=== PATIENT | female | born 1995 ===

== ENCOUNTER 2025-02-05 01:38 | Emergency (ER) | payer MEDICAID, OTHER ==
[~2025-02-05] VITALS: Ht 154.9 cm; Wt 65.9 kg
--- NOTE | 2025-02-05 02:35 | ED.PDOC ---
GI ASSESSMENT HPI Comments 29-year-old female with no reported PMHx presents with a chief complaint of abdominal pain x 1900 onset with associated nausea and vomiting. Patient mentions that her pain is localized to her epigastric region, nonradiating, describes as cramping sensation, and rates her pain a 6/10. Patient mentions that she may have eaten spoiled food. Patient mentions that she ate chicken salad. Patient denies any current diarrhea, or any blood in her emesis. No other symptoms or modifying factors present at this time. Chief Complaint: Abdominal Pain Time Seen by MD: 02:15 Reviewed Notes: Medications, Allergies Allergies: Coded Allergies: NO KNOWN ALLERGIES (Unverified , 02/05/25) Information Source: Patient Mode of Arrival: Ambulatory Timing: Hours Duration: Since onset Prehospital treatment: None Quality: Cramping Vomitus: Food Particles Stool: Normal Severity: Moderate Recent: Possible spoiled food Recent Hx of: None Pain Location: Epigastric Associated sign and symptoms: Nausea, Vomiting, Abdominal Pain Vital Signs Vital Signs Date Time Temp Pulse Resp B/P (MAP) Pulse Ox O2 Delivery O2 Flow Rate FiO2 02/05/25 01:50 99.4 94 16 118/86 (97) 97 99.4 Physical Exam General: Awake, alert and oriented. No acute distress. Skin: Skin in warm, dry and intact. Appropriate color for ethnicity. HEENT: The head is normocephalic and atraumatic. Conjunctivae are clear without exudates or hemorrhage. Sclera is non-icteric. EOM are intact. No signs of nystagmus. Eyelids are normal in appearance without swelling or lesions. Oral mucosa is pink and moist Neck: The neck is supple with normal range of motion. No JVD. Cardiac: Heart rate and rhythm are normal. No murmurs, gallops, or rubs are auscultated. Respiratory: No signs of respiratory distress. Lung sounds are clear in all lobes bilaterally without rales, ronchi, or wheezes. Abdominal: Abdomen is soft, non-tender without distention. Bowel sounds are present and normoactive in all four quadrants. Extremities: Upper and lower extremities are atraumatic in appearance without deformity or edema. Neurological: The patient is awake, alert and oriented to person, place, and time with normal speech. Speech is clear. There is no facial asymmetry. Psychiatric: Appropriate mood and affect. Good judgement and insight. Review of Systems: REVIEW OF SYSTEMS: No fever, no chills, or fatigue HEENT: No sore throat, no earache, no congestion, no neck pain. Cardiac: No chest pain. No palpitations. Lungs: No shortness of breath, no cough. GI: No nausea, no vomiting, no diarrhea, no constipation, no abdominal pain : No dysuria, frequency, or urgency. No hematuria. Musculoskeletal: No joint pain , no joint swelling, no extremity edema. Skin: No rash, no itching. 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 Was a procedure done?: No X-Ray, Labs, Meds, VS Vital Signs Date Time Temp Pulse Resp B/P (MAP) Pulse Ox O2 Delivery O2 Flow Rate FiO2 02/05/25 01:50 99.4 94 16 118/86 (97) 97 99.4 Lab Test 02/05/25 02:36 02/05/25 02:00 Range/Units White Blood Count 11.2 H 4.4-10.8 10^3/uL Red Blood Count 4.42 4.0-5.20 10^6/uL Hemoglobin 13.7 12.2-16.2 g/dL Hematocrit 39.9 36.0-46.0 % Mean Corpuscular Volume 90.4 80.0-100.0 fL Mean Corpuscular Hemoglobin 31.1 28.0-32.0 pg Mean Corpuscular Hemoglobin Concent 34.4 32.0-36.0 g/dL Red Cell Distribution Width 14.0 11.8-14.3 % Platelet Count 218 140-450 10^3/uL Mean Platelet Volume 9.5 6.9-10.8 fL Neutrophils (%) (Auto) 87.0 H 37.0-80.0 % Lymphocytes (%) (Auto) 7.5 L 10.0-50.0 % Monocytes (%) (Auto) 4.6 0.0-12.0 % Eosinophils (%) (Auto) 0.7 0.0-7.0 % Basophils (%) (Auto) 0.2 0.0-2.0 % Neutrophils # (Auto) 9.7 H 1.6-8.6 10 ^3/uL Lymphocytes # (Auto) 0.8 0.4-5.4 10 ^3/uL Monocytes # (Auto) 0.5 0-1.3 10 ^3/uL Eosinophils # (Auto) 0.1 0-0.8 10 ^3/uL Basophils # (Auto) 0 0-0.2 10 ^3/uL Nucleated Red Blood Cells 0.0 % Sodium Level 140 136-145 mmol/L Potassium Level 3.5 3.5-5.1 mmol/L Chloride Level 107 98-107 mmol/L Carbon Dioxide Level 24 20-31 mmol/L Anion Gap 9 5-15 Blood Urea Nitrogen 10 9-23 mg/dL Creatinine 0.84 0.550-1.02 mg/dL Glomerular Filtration Rate Calc 98 >90 mL/min BUN/Creatinine Ratio 11.9 10.0-20.0 Serum Glucose 92 74-106 mg/dL Lactic Acid Level 1.2 0.4-2.0 mmol/L Calcium Level 9.6 8.7-10.4 mg/dL Total Bilirubin 0.5 0.2-1.0 mg/dL Aspartate Amino Transferase (AST) 32 13-40 U/L Alanine Aminotransferase (ALT) 40 7-40 U/L Alkaline Phosphatase 86 46-116 U/L Total Protein 7.4 5.7-8.2 g/dL Albumin 4.8 3.2-4.8 g/dL Lipase 42 12-53 U/L Urine Color Light-yellow Yellow Urine Clarity Clear Clear Urine pH 8.5 5.0-9.0 Urine Specific [place] 1.026 1.001-1.035 Urine Protein Trace H Negative Urine Ketones Negative Negative Urine Blood Negative Negative /uL Urine Nitrite Negative Negative Urine Bilirubin Negative Negative Urine Urobilinogen Normal Negative mg/dL Urine Leukocyte Esterase Negative Negative /uL Urine RBC 5 0 - 4 /hpf Urine Microscopic WBC 1 0-5 /HPF Urine Squamous Epithelial Cells Few <5 /hpf Urine Bacteria Few H None Seen /hpf Urine Glucose Normal Normal mg/dL Urine Test Negative Negative Time of 1ST Reevaluation: 02:45 Reevaluation 1ST: Unchanged Patient Education/Counseling: Diagnosis, Treatment, Prognosis Family Education/Counseling: No Family Present Departure 1 Departure Time of Disposition: 03:56 Impression: Primary Impression: Abdominal pain Additional Impression: Vomiting Disposition: 01 HOME / SELF CARE / HOMELESS Condition: Stable Additional Instructions: ED DISCHARGE INSTRUCTIONS Instructions: Please read all instructions provided in this packet carefully. Although you have been discharged from the Emergency Department, this does not mean that you have a "clean bill of health". No definitive diagnosis for your symptoms has been made today. It is possible that you are in the process of developing a serious illness. This is why you must return to the ED without fail if any new or worsening symptoms (especially if your symptoms include chest pain, trouble breathing, abdominal pain, fever, headache, confusion, trouble seeing, or trouble walking) It is also very important that you see a primary care doctor within the next 3-5 days to follow up. If you are unable to get an appointment, return to the ED for re-evaluation. Abdominal Pain: Care Instructions Overview Abdominal pain has many possible causes. Some aren't serious and get better on their own in a few days. Others need more testing and treatment. If your pain continues or gets worse, you need to be rechecked and may need more tests to find out what is wrong. You may need surgery to correct the problem. Don't ignore new symptoms, such as fever, nausea and vomiting, urination problems, pain that gets worse, and dizziness. These may be signs of a more serious problem. If you are not getting better, you may need more tests or treatment. The doctor has checked you carefully, but problems can develop later. If you notice any problems or new symptoms, get medical treatment right away. Follow-up care is a roth part of your treatment and safety. Be sure to make and go to all appointments, and call your doctor if you are having problems. It's also a good idea to know your test results and keep a list of the medicines you take. How can you care for yourself at home? Rest until you feel better. To prevent dehydration, drink plenty of fluids. Choose water and other clear liquids until you feel better. If you have kidney, heart, or liver disease and have to limit fluids, talk with your doctor before you increase the amount of fluids you drink. When you feel like eating, start with small amounts. Do not have alcohol, caffeine, or spicy, hot, or high-fat foods for a day or two. Avoid anti-inflammatory medicines such as aspirin, ibuprofen (Advil, Motrin), and naproxen (Aleve). These can cause stomach upset. Talk to your doctor if you take daily aspirin for another health problem. When should you call for help? Call 911 anytime you think you may need emergency care. For example, call if: You passed out (lost consciousness). You pass maroon or very bloody stools. You vomit blood or what looks like coffee grounds. You have severe belly pain. Call your doctor now or seek immediate medical care if: Your pain gets worse, especially if it becomes focused in one area of your belly. You have a new or higher fever. Your stools are black and look like tar, or they have streaks of blood. You have unexpected vaginal bleeding. You have symptoms of a urinary tract infection. These may include: Pain when you urinate. Urinating more often than usual. Blood in your urine. You are dizzy or lightheaded, or you feel like you may faint. Watch closely for changes in your health, and be sure to contact your doctor if: You are not getting better as expected. Credits for Abdominal Pain: Care Instructions Current as of: August 18, 2023 Author: [employer] Staff Clinical Review Board All [employer] education is reviewed by a team that includes physicians, nurses, advanced practitioners, registered dieticians, and other healthcare professionals. e-Prescriptions Ondansetron Odt 4MG Tab (ZOFRAN PO) 4 Mg Tb 4 MG PO TIDPRN PRN for 3 Days, #9 TAB ODT TAB-DISSOLVE IN MOUTH, THEN SWALLOW Prov: MIKE ELIZONDO MD 02/05/25 Famotidine (Pepcid AC) 20 Mg Tab 20 MG PO DAILY for 5 Days, #5 TAB Prov: MIKE ELIZONDO MD 02/05/25 Comments 29-year-old female presented with abdominal pain. No peritoneal signs on abdominal exam. No evidence of acute abdomen at this time. patient is well appearing. Labs show no leukocytosis or elevation of LFTs. Imaging not warranted at this time Patient is afebrile. Patient is not hypotensive. Low suspicion for acute hepatobiliary disease (including acute cholecystitis, acute pancreatitis, PUD (including perforation), acute infectious process (pneumonia, hepatitis, pyelonephritis), acute appendicitis, vascular catastrophe, bowel obstructions, viscous perforation. Presentation not consistent with other acute, emergent causes of abdominal pain at this time. Patient well-appearing, nontoxic. Advised prompt follow-up with PCP, return to the ED with any new, worsening or concerning symptoms. Critical Care Note Critical Care Time?: No Stability Stability form required: No Heart Score Heart Score: Heart Score Response (Comments) Value History N/A 0 EKG N/A 0 Age N/A 0 Risk Factors N/A 0 Troponin N/A 0 Total 0 I personally scribed for MIKE ELIZONDO MD ([email or web address]) on 02/05/25 at 02:35. Electronically submitted by Dylan Rene ([email or web address]). MIKE ELIZONDO MD Feb 05, 2025 02:35
[2025-02-05 03:09] LABS: Urine Bacteria FEW /hpf (None Seen); Urine Blood Negative /uL (Negative); Urine Clarity Clear (Clear); Urine Color Light-Yellow (Yellow); Urine Protein, UAD TRACE (Negative); Urine Specific Gravity 1.026 (1.001-1.035); Urine Squamous Epithelial Cell FEW /hpf (<5); Urine Urobilinogen Normal (Negative); Urine WBC 1 /HPF (0-5); Urine pH 8.5 (5.0-9.0)
[2025-02-05 03:15] LABS: Alanine Aminotransferase 40 U/L (7-40); Albumin 4.8 g/dL (3.2-4.8); Alkaline Phosphatase 86 U/L (46-116); Anion Gap 9 (5-15); Aspartate Aminotransferase 32 U/L (13-40); BUN/Creatinine Ratio 11.9 (10.0-20.0); Blood Urea Nitrogen 10 mg/dL (9-23); Calcium 9.6 mg/dL (8.7-10.4); Carbon Dioxide 24 mmol/L (20-31); Glucose 92 mg/dL (74-106); Lipase 42 U/L (12-53); Potassium 3.5 mmol/L (3.5-5.1); Sodium 140 mmol/L (136-145); Total Protein 7.4 g/dL (5.7-8.2)
[2025-02-05 03:16] LABS: Bilirubin, Total 0.5 mg/dL (0.2-1.0)
[2025-02-05 03:21] LABS: Basophils # (auto) 0 10 ^3/uL (0-0.2); Basophils % (auto) 0.2 % (0.0-2.0); Eosinophils # (auto) 0.1 10 ^3/uL (0-0.8); Eosinophils % (auto) 0.7 % (0.0-7.0); Hematocrit 39.9 % (36.0-46.0); Hemoglobin 13.7 g/dL (12.2-16.2); Lymphocytes # (auto) 0.8 10 ^3/uL (0.4-5.4); Lymphocytes % (auto) 7.5 % (10.0-50.0); Mean Corpuscular Hemoglobin 31.1 pg (28.0-32.0); Mean Corpuscular Hgb Conc. 34.4 g/dL (32.0-36.0); Mean Corpuscular Volume 90.4 fL (80.0-100.0); Monocytes # (auto) 0.5 10 ^3/uL (0-1.3); Monocytes % (auto) 4.6 % (0.0-12.0); Neutrophils # (auto) 9.7 10 ^3/uL (1.6-8.6); Platelet Count (auto) 218 10^3/uL (140-450); Red Blood Cells 4.42 10^6/uL (4.0-5.20); White Blood Cell 11.2 10^3/uL (4.4-10.8)
[2025-02-05 03:32] LABS: Chloride 107 mmol/L (98-107)
[2025-02-05] MEDS ORDERED: FAMO-161 PO (03:57)
[2025-02-05] MEDS ORDERED: ZOFR4T PO (03:57)
[2025-02-05] MEDS: ONDANSETRON ODT 4 MG TAB PO ONE (05:01)
[2025-02-05] MEDS: PANTOPRAZOLE 40 MG TAB PO ONE (05:01)
[2025-02-05] MEDS: MAALOX PLUS or MAALOX 30 ML PO ONE (05:02)
[2025-02-05] MEDS: LIDOCAINE VISCOUS 2% 15ML UD PO ONE (05:02)
[2025-02-05 05:06] VITALS: PULSE 100; RESP 14; O2SAT 99
[2025-02-05 05:10] VITALS: BP 124/80; PULSE 98; RESP 18; TEMP 99.2; O2SAT 98
== END 2025-02-05 05:16 | disposition home or self-care (01) ==
LOC: ER 01:38
DX: R10.13 Epigastric pain (principal); R11.2 Nausea with vomiting, unspecified
CPT/HCPCS: 36415; 80053; 81001; 81025; 83605; 83690; 85025; 99284; Q0162